=== PATIENT | female | born 1955 | race Caucasian/White ===

== ENCOUNTER 2020-12-16 22:33 | Emergency (ER) | payer MEDICARE, MEDICAID, SELFPAY ==
[2020-12-16 22:36] VITALS: BP 215/115; PULSE 85; RESP 18; TEMP 36.7; O2SAT 100
[2020-12-16 22:51] VITALS: BP 190/91; PULSE 78; TEMP 36.8; O2SAT 96
[2020-12-16 23:18] LABS: RBC Urine 0-1/HPF (0-5/HPF)
[2020-12-16 23:20] LABS: Bacteria Urine Occasional (0-1); Hyaline Casts Urine 0-1/LPF; Mucus Urine 1+ (Negative)
[2020-12-16 23:21] LABS: Culture Indicated Urine Cult Not Indicated; Squamous Epithelial Cell Urine 5-10 /HPF (0-5/HPF); WBC Urine 1-5/HPF (0-5/HPF)
--- NOTE | 2020-12-16 23:41 | DI.RAD.S_ITS ---
PROCEDURE: XR SOFT TISSUE NECK INDICATIONS: swallowed metallic foreign body TECHNIQUE: 2 views of the neck were acquired. COMPARISON: None. FINDINGS: Airway: The airway appears patent. Soft tissues: Prevertebral soft tissues are normal in thickness. The epiglottis and aryepiglottic folds appear normal. No soft tissue gas. Small curvilinear radiopaque density projects over the expected region of the base of the tongue is only visualized on the lateral view. A 2 x 4 millimeter density projects over the prevertebral soft tissues in the lateral only view.. Bones: No suspicious bony lesions. Visualized cervical spine is normally aligned. IMPRESSION: 1. Curvilinear radial density projects over the base of the tongue. The object is seen only in the lateral view and cannot be definitively localized. Consider CT scan of the neck for further evaluation. 2. 2 x 4 millimeter density projecting over the prevertebral soft tissues. The object is seen only the lateral view and cannot be definitively localized. Consider CT scan of the neck for further evaluation. Dictated by: Adelaida Cote MD, PhD on 12/17/2020 at 8:14 Approved by: Adelaida Cote MD, PhD on 12/17/2020 at 8:17
[2020-12-17] VITALS (11 sets, daily range): BP systolic 179–208; BP diastolic 82–99; PULSE 71–83; O2SAT 97–98
--- NOTE | 2020-12-17 00:49 | ED.SKABFB ---
HPI - Skin/Abscess/Foreign Bdy General Chief complaint: Skin/Abscess/Foreign Body Stated complaint: SWALLOWED METAL FROM CAN THROAT IS UNCOFORTABLE Time Seen by Provider: 12/16/20 22:37 Source: patient Mode of arrival: Ambulatory History of Present Illness HPI narrative: 64-year-old female nonsmoker presents with a chief complaint of feeling a sharp, stabbing foreign body in the left back side of her throat. She is camping locally and was eating a can of peas when she felt a foreign body and her the back of her throat. She has been able to get some water down is handling her secretions without difficulty. This happened at about 7:00 p.m. tonight and she presents because she can still feels something in her throat. She denies any chest pain, fever or trouble breathing. Related Data Allergies Allergy/AdvReac Type Severity Reaction Status Date / Time Sulfa (Sulfonamide Allergy Verified 12/16/20 22:39 Antibiotics) Review of Systems Review of Systems Narrative: GENERAL: Denies chills, fatigue, malaise, fever, sweats. HEENT: See HPI RESPIRATORY: Denies dyspnea, cough, wheezing, hemoptysis, sputum. CARDIOVASCULAR: Denies chest pain, palpitations, orthopnea, edema, GASTROINTESTINAL: Denies nausea, vomiting, abdominal pain, diarrhea, constipation, melena. : Denies dysuria, frequency, incontinence, hematuria, urinary retention. MUSCULOSKELETAL: denies weakness, joint pain, or bony pain SKIN: Denies rash, skin lesions, or other NEUROLOGIC: Denies weakness, headache, numbness, change in speech, confusion, seizures, incoordination. PSYCHIATRIC: No concerning psychosocial issues. 12 point review of systems is negative except for those stated above Exam Narrative Exam Narrative: GEN: AOx3 and in mild distress EYES: Pupils are equal, round, and reactive to light and accommodation. Extraoccular muscles are intact bilaterally. There is no subconjunctival hemorrhage or exudate. ENT: Handling secretions without difficulty, no obvious visualization of foreign body on exam, moist mucous membranes, no pharyngeal edema. CHEST: Lungs are clear to auscultation bilaterally and free of wheezes, rales, or rhonchi. Heart rate is regular rhythm, there are no murmurs, clicks, rubs, or gallops. There is no chest wall tenderness. ABD: Abdomen is soft and nontender. There is no guarding or rebound. Bowel sounds are normal in all 4 quadrants. There is no mass or organomegaly. EXT: Full painless ROM of all extremities with no loss of sensation or strength. SKIN: Warm, pink, and dry. No erythema or rash Initial Vital Signs Initial Vital Signs: Vital Signs Temperature 98.1 F 12/16/20 22:36 Pulse Rate 85 12/16/20 22:36 Respiratory Rate 18 12/16/20 22:36 Blood Pressure 215/115 H 12/16/20 22:36 Pulse Oximetry 100 12/16/20 22:36 Course Orders Ordered: ED Orders 12/16/20 22:59 Urine Microscopic Stat 12/16/20 23:41 XR soft tissue neck Stat 12/17/20 01:40 COVID19 - ADMIT (INDEP[employer]ENT [employer] swab/PCR) Stat Complete Blood Count AUTO DIFF Stat Discontinued Medications Ketorolac Tromethamine (Ketorolac 30 Mg/Ml Vial) 15 mg IV NOW ONE Stop: 12/17/20 02:34 Last Admin: 12/17/20 02:39 Dose: 15 mg Documented by: LENIN Consultations Consultation #1: Call to General surgery (Dr. Kulkarni) who suggests the location of this foreign body may be most appropriately evaluated by ENT Consultation #2: Discussed with Dr. Paz, who recommends holding until Dr. Humphrey comes in this morning Dr. Humphrey has seen patient in the ED. He performed a scope at the bedside and there is no obvious foreign body that he can see. Please see his note for details but he and patient discussed watchful waiting over the next 24 hours, use of clear liquid diet initially and close follow-up, particularly if symptoms worsen. Vital Signs Vital signs: Vital Signs - 8 hr 12/17/20 02:09 12/17/20 03:58 12/17/20 03:59 Pulse Rate 72 83 79 Blood Pressure 179/82 H Pulse Oximetry 98 98 97 12/17/20 04:00 12/17/20 04:04 12/17/20 04:30 Pulse Rate Blood Pressure 208/93 H 190/97 H 179/88 H Pulse Oximetry MDM - Skin/Abscess/Foreign Bdy Lab Data Result diagrams: 12/17/20 01:40 Labs: Lab Results 12/16/20 12/17/20 12/17/20 Range/Units 22:59 01:40 01:40 WBC 9.2 (4.5-11.0) X10^3/uL RBC 4.64 (4.0-5.2) X10^6/uL Hgb 13.7 (12.0-16.0) g/dL Hct 40.9 (36-46) % MCV 88.2 (80-100) fL MCH 29.5 (26-34) PG MCHC 33.5 (30-36) % RDW 14.8 (11.6-14.8) % Plt Count 266 (150-400) X10^3/uL Neut % (Auto) 62.8 (50-75) % Lymph % (Auto) 27.3 (25-40) % [place] % (Auto) 5.9 (3-14) % Eos % (Auto) 3.3 (2-4) % Baso % (Auto) 0.7 (0-2) % Neut # (Auto) 5800 (3747-6736) /uL Lymph # (Auto) 2500 (3398-1622) /uL [place] # (Auto) 500 (0-900) /uL Eos # (Auto) 300 (0-450) /uL Baso # (Auto) 100 (0-100) /uL Urine RBC 0-1/hpf (0-5/HPF) Urine WBC 1-5/hpf (0-5/HPF) Ur Squamous Epith Cells 5-10 /hpf H (0-5/HPF) Urine Bacteria Occasional (0-1) (None) Hyaline Casts 0-1/lpf (None) Urine Mucus 1+ H (Negative) Ur Culture Indicated? Cult not indicated SARS-CoV-2 (PCR) Negative (Negative) Urine Dip Bedside Urine Glucose Negative Bedside Urine Bilirubin - Negative Bedside Urine Ketone - Negative Urine Specific [place] 1.020 Bedside Urine Occult Blood ++ Bedside Urine pH 6.0 Bedside Urine Protein - Negative Bedside Urine Urobilinogen - Negative Bedside Urine Nitrite - Negative Bedside Urine Leukocytes - Negative Esterase Imaging Data Soft Tissue Neck: Radiologist's Impression: Possible radiopaque foreign body in the left piriform sinus MDM Narrative Medical decision making narrative: The patient suspects possible swallowed foreign body. She is guarding her airway and controlling secretions without difficulty. No obviously visible foreign body on physical exam or imaging. She has been seen and evaluated at bedside by ENT and he will see her in follow-up. Patient given return precautions and questions answered to her apparent satisfaction Discharge Plan Departure Patient Disposition: Home Clinical Impression: Esophageal foreign body Qualifiers: Encounter type: initial encounter Qualified Code(s): T18.108A - Unspecified foreign body in esophagus causing other injury, initial encounter Instructions: DI for Foreign Body, Swallowed-Adult Activity Restrictions/Additional Instructions: *You have been diagnosed with [possible esophageal foreign body, not obviously seen on physical exam or imaging.] *What to do: *Please continue to take your regular medications as directed. [ ] New medication prescriptions sent to your pharmacy: [ ] [ ] New medication written as a paper prescription [x ] No new medications given *Please follow up with Dr. Humphrey of [facility] in 2-3 days, call for an appointment. Let them know you were seen in the Emergency Department and that we ask that you be seen in follow up. We will electronically transmit a record of today's note if your PCP is in our system *As he discussed please start with a clear liquid diet. We should have a much better idea of things over the next 24 hours. *If you do not have a primary care provider please contact the [facility] Resource line at [phone]. They will ask some questions about your medical history and help get you set up with a doctor in the community. *Return to Emergency Department if you should have any new, worsening or concerning symptoms, such as [fever greater than 101 F, shaking chills, worsening pain, persistent vomiting or other bothersome symptoms] Referrals: Silverio Humphrey MD [Physician] -
[2020-12-17 02:00] LABS: Add Manual Diff / Slide Review NO; Basophils Absolute Auto 100 /uL (0-100); Basophils Percent Auto 0.7 % (0-2); Eosinophils Absolute Auto 300 /uL (0-450); Eosinophils Percent Auto 3.3 % (2-4); Hematocrit 40.9 % (36-46); Hemoglobin 13.7 g/dL (12.0-16.0); Lymphocytes Absolute Auto 2500 /uL (1100-4500); Lymphocytes Percent Auto 27.3 % (25-40); Mean Corpuscular HGB Conc 33.5 % (30-36); Mean Corpuscular Hemoglobin 29.5 PG (26-34); Mean Corpuscular Volume 88.2 fL (80-100); Monocytes Absolute Auto 500 /uL (0-900); Monocytes Percent Auto 5.9 % (3-14); Neutrophils Absolute Auto 5800 /uL (1500-7000); Neutrophils Percent Auto 62.8 % (50-75); Platelet Count 266 X10^3/uL (150-400); Red Blood Cell Count 4.64 X10^6/uL (4.0-5.2); Red Cell Distribution Width 14.8 % (11.6-14.8); White Blood Cell Count 9.2 X10^3/uL (4.5-11.0)
--- NOTE | 2020-12-17 02:24 | PC.NURSE ---
Pt Eating grean beans when she swallowed. when swallowing felt sharp pain in throat. continues with pain, difficulty swallowing. Maintaining airway. managing saliva.
[2020-12-17] MEDS: KETOROLAC 30 MG/ML VIAL 15 MG IV (02:39)
[2020-12-17 02:50] LABS: COVID19 - ADMIT (NP swab/PCR) Negative (Negative)
--- NOTE | 2020-12-17 07:10 | PC.NURSE ---
Dr. Humphrey in now with pt with scope
--- NOTE | 2020-12-17 11:55 | P.CONS_ITS ---
History of Present Illness Consult details Date Patient Seen: 12/17/20 Time Patient Seen: 07:00 Chief complaint: Throat pain, possible FB Requesting provider: Aravind Wei Narrative: 64yo female without similar prior problems, eating green beans from a can [place] on [place] appro[place] 7pm, sensation of sharp FB almost swallowed, feels left low neck. See ER note for details. Intermittent pain, not constant even with swallowing. Plain film with possible opaque small FB in area of piriform but not definite to my eye. No other ENT complaints. Consultation requested, including flexible laryngoscopy. Meds Home Medications and Allergies Allergies Allergy/AdvReac Type Severity Reaction Status Date / Time Sulfa (Sulfonamide Allergy Verified 12/16/20 22:39 Antibiotics) Review of Systems Review of Systems Narrative: Otherwise neg except as in HPI Exam Vital Signs (past 8 hours): - 12/17/20 03:58 12/17/20 03:59 12/17/20 04:00 Pulse Rate 83 79 Blood Pressure 208/93 H Pulse Oximetry 98 97 12/17/20 04:04 12/17/20 04:30 12/17/20 05:00 Pulse Rate Blood Pressure 190/97 H 179/88 H 191/91 H Pulse Oximetry 12/17/20 05:30 12/17/20 06:00 12/17/20 06:30 Pulse Rate Blood Pressure 199/98 H 196/99 H 191/88 H Pulse Oximetry 12/17/20 06:57 Pulse Rate 71 Blood Pressure Pulse Oximetry 98 Oxygen Delivery Method Room Air Narrative Exam Narrative: WD, overweight female in NAD, nl voice, pk secretions, no stridor. Neck soft, nontender. OC/OP clear. Objective Labs Result Diagrams: 12/17/20 01:40 Labs: Laboratory Results - last 24 hr 12/16/20 12/17/20 12/17/20 22:59 01:40 01:40 WBC 9.2 RBC 4.64 Hgb 13.7 Hct 40.9 MCV 88.2 MCH 29.5 MCHC 33.5 RDW 14.8 Plt Count 266 Neut % (Auto) 62.8 Lymph % (Auto) 27.3 [place] % (Auto) 5.9 Eos % (Auto) 3.3 Baso % (Auto) 0.7 Neut # (Auto) 5800 Lymph # (Auto) 2500 [place] # (Auto) 500 Eos # (Auto) 300 Baso # (Auto) 100 Urine RBC 0-1/hpf Urine WBC 1-5/hpf Ur Squamous Epith Cells 5-10 /hpf H Urine Bacteria Occasional (0-1) Hyaline Casts 0-1/lpf Urine Mucus 1+ H Ur Culture Indicated? Cult not indicated SARS-CoV-2 (PCR) Negative Assessment & Plan Assessment & Plan narrative: A: Possible pharyngeal/hypopharyngeal FB but not visualized on endoscopy. Throat pain possibly c/w FB or trauma due to same. P: Initially reassuring laryngoscopy, but cannot completely r/o persistent FB not able to be visualized. OK for d/c and resume initially clear liquids, may need repeat eval in clinic with persistent or worsening symptoms.
--- NOTE | 2020-12-17 12:04 | PM.OP.1 ---
Operative Date/Time/Diagnoses Date of procedure: 12/17/20 Time of procedure: 07:00 Pre-op diagnosis: Throat pain, possible FB ingestion Post-op diagnosis: same Procedure & Clinicians Procedure: Flexible laryngoscopy Same procedure as scheduled: Yes Indications: 64yo female with possible FB ingestion, throat pain, equivocally abnormal plain film. Following discussion of the material risks, benefits, complications, and alternatives, pt elected to proceed. Surgeon: Silverio Humphrey Click Yes if Unassisted: Yes Anesthesia Type: None Operative Notes Findings: Nl RIGHT nasal cavity, nasopharynx, prominent BOT but clear vallecula, nl and clear piriform sinuses, normally mobile TVC's without lesion. No FB seen. Procedure in detail: Following verbal consent, the lubricated flexible laryngscope was passed through the RIGHT nostril, with the above findings noted. Tolerated well without known complication. Complications: none Post-operative Condition: stable Disposition: other (Home) Plan for aftercare: OK for D/C, resume clear liquids, call with progress and with any worsening.
== END 2020-12-17 07:28 | disposition home or self-care (01) ==
PROVIDERS: Emergency Provider Emergency Medicine
DX: T18.108A Unspecified foreign body in esophagus causing other injury, initial encounter (principal); Z20.822 Contact with and (suspected) exposure to COVID-19
CPT/HCPCS: 36415; 70360; 81003; 81015; 85025; 87635; 96374; 99284; C9803; J1885